=== PATIENT | male | born 1985 | race Caucasian/White ===

== ENCOUNTER 2018-03-26 08:04 | Emergency (ER) | payer SELFPAY ==
[2018-03-26] MEDS ORDERED: Fluorescein Opthalmic Strip ONE (08:16)
== END 2018-03-26 08:45 | disposition home or self-care (01) ==
LOC: SCSER 08:04
DX: H10.9 Unspecified conjunctivitis (principal); F17.200 Nicotine dependence, unspecified, uncomplicated
CPT/HCPCS: 99282